=== PATIENT | male | born 1970 | race Caucasian/White ===

== ENCOUNTER 2017-04-01 14:33 | Inpatient (IN) | payer MEDICAID ==
[~2017-04-01] VITALS: Ht 175.3 cm; Wt 95.3 kg
--- NOTE | 2017-04-01 07:15 | NUR ---
MS RN OPENING NOTES: PT IS CURRENTLY GETTING AN MRI. PT IS NOT IN BED. 2 FAMILY MEMBERS ARE AT BEDSIDE WAITING FOR HIM TO COME BACK. WILL CHECK BACK IN WHEN HE ARRIVES.
--- NOTE | 2017-04-01 14:33 | NUR ---
BIB RA FROM HOME FOR ABDOMINAL PAIN X 3-4 DAYS, REFERRED BY PCP. NAD NOTED. PT AAO X4, AMB WITH STEADY GAIT. RR EVEN AND UNLABORED. PAIN 10/10. PT PLACED IN GOWN AND MONITOR. CONTINUE TO MONITOR.
[2017-04-01] MEDS ORDERED: MORPHINE SULFATE INJ 4 MG/ML DISP.SYRIN ONE (14:40)
[2017-04-01] MEDS ORDERED: IV NS 0.9% 1,000 ML ONE (14:40)
[2017-04-01] MEDS ORDERED: ONDANSETRON HCL/PF 4 MG/2 ML VIAL ONE (14:40)
[2017-04-01] MEDS ORDERED: IV SET PRIMARY PUMP SET 1 EA INFUS.SET MC ONE ×2 (14:40→17:57)
[2017-04-01 14:52] LABS: BASOPHILS # (AUTO) 0.3 /CMM (0.0-0.2); BASOPHILS % (AUTO) 2.4 % (0.0-2.0); EOSINOPHILS % (AUTO) 0.3 % (0.0-6.0); HEMATOCRIT 46 % (39-51); HEMOGLOBIN 15.4 g/dL (13.5-17.5); LYMPHOCYTES # (AUTO) 0.9 /CMM (0.8-4.8); LYMPHOCYTES % (AUTO) 7.5 % (20.0-44.0); MEAN CORPUSCULAR HEMOGLOBIN 29 PG (26.0-33.0); MEAN CORPUSCULAR HGB CONC 34 g/dl (31.0-36.0); MEAN CORPUSCULAR VOLUME 85 fL (80-96); MONOCYTES # (AUTO) 1.1 /CMM (0.1-1.30); MONOCYTES % (AUTO) 9.1 % (2.0-12.0); NEUTROPHILS # (AUTO) 9.9 /CMM (1.8-8.9); NEUTROPHILS % (AUTO) 80.7 % (43.0-81.0); PLATELET COUNT (AUTO) 187 /CMM (150-450); RDW COEFFICIENT OF VARIATION 12.4 (11.5-15.0); RED BLOOD CELL COUNT(AUTO) 5.38 MIL/uL (4.5-6.0); WHITE BLOOD COUNT (AUTO) 12.2 K/uL (4.3-11.0)
--- NOTE | 2017-04-01 14:52 | NUR ---
MEDICATIONS GIVEN ORDERED.
[2017-04-01 15:00] LABS: CALCIUM, SERUM 9.6 mg/dL (8.5-10.1); CREATININE 0.9 mg/dL (0.6-1.3); POTASSIUM 4.2 mmol/L (3.5-5.1)
[2017-04-01] MEDS ORDERED: MORPHINE SULFATE INJ 2 MG/ML DISP.SYRIN IV ONE (15:00)
[2017-04-01] MEDS ORDERED: IV NS 0.9% 1,000 ML BAG IV ONE (15:00)
[2017-04-01] MEDS ORDERED: ONDANSETRON HCL/PF 4 MG/2 ML VIAL IVP ONE (15:00)
[2017-04-01 15:06] LABS: ALBUMIN 4.1 g/dL (3.4-5.0); BILIRUBIN,DIRECT 0.2 mg/dL (0.0-0.2); BILIRUBIN,TOTAL 0.9 mg/dL (0.2-1.0); TOTAL PROTEIN, SERUM 7.8 g/dL (6.4-8.2)
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
--- NOTE | 2017-04-01 16:27 | NUR ---
REPORT GIVEN TO SOPHIE Jarrell RN FOR ASHWINI
[2017-04-01] MEDS ORDERED: PIPERACILLIN /TAZOBACTAM 3.375 G in IV D5W 50 ML IV ONE (16:30)
[2017-04-01] MEDS ORDERED: HYDROCODONE/APAP 5/325MG 1 EACH TABLET PO PRN (16:30)
[2017-04-01] MEDS ORDERED: Z GUARD REMEDY 2 OZ OINT TP PRN (16:30)
[2017-04-01] MEDS ORDERED: ONDANSETRON HCL/PF 4 MG/2 ML VIAL IVP PRN (16:30)
[2017-04-01] MEDS ORDERED: ZOLPIDEM TARTRATE 5 MG TABLET PO PRN (16:30)
--- NOTE | 2017-04-01 16:48 | NUR ---
TEXTED [facility].
--- NOTE | 2017-04-01 17:00 | NUR ---
MALE PT. BROUGHT UP FROM ER AND MADE COMFORTABLE,VS TAKEN,SLEEPY AND NO ACUTE DISCOMFORT AT THIS TIME.FAMILY AT BEDSIDE.
--- NOTE | 2017-04-01 17:02 | NUR ---
[facility]
[2017-04-01 17:08] LABS: INR 0.98 (0.87-1.13); PROTHROMBIN TIME 10.5 SECS (9.5-12.7)
--- NOTE | 2017-04-01 17:40 | NUR ---
STARTED LOVENOX AND IV HUNG.
[2017-04-01] MEDS: IV NS 0.9% 1,000 ML IV PRN (18:05)
[2017-04-01] MEDS: ENOXAPARIN SODIUM 40 MG/0.4 ML DISP.SYRIN SQ SCH (18:07)
[2017-04-01 18:47] VITALS: BP 137/92
--- NOTE | 2017-04-01 19:20 | NUR ---
GAS DESULFURIZER OPENING NOTES: RECEIVED PT IN BED AWAKE WITH GIRLFRIEND AT BEDSIDE. PT IS A/O X3. PT HAS URINAL AT BEDSIDE. PT WAS INFORMED THAT HE WILL BE NPO PAST MIDNIGHT. PT HAS IV ON R AC 20G AND IS PATENT AND INTACT. PT VOICED THAT HIS PAIN LEVEL IS AT A 7/10 CHEST PAIN. CALL LIGHT WITHIN PT'S REACH. BED KEPT IN LOCKED, LOWEST POSITION, AND SIDE RAILS X 2 UP. WILL CONTINUE TO MONITOR PT. Addendum: 04/01/17 at 2001 by ELAN ALEXANDER RN WRONG CHARTING FOR PATIENT. DISREGARD THIS PLEASE. THANK YOU. Addendum: 04/01/17 at 2330 by ELAN ALEXANDER RN DISREGARD THIS NOTE; WRONG CHARTING FOR WRONG PATIENT.
[2017-04-01 20:00] VITALS: BP 157/105
[2017-04-01] MEDS: HYDROMORPHONE 1 MG/1 ML DISP.SYRIN IV PRN (20:30)
--- NOTE | 2017-04-01 20:30 | NUR ---
MS RN NOTES: PT COMPLAINED OF 8/10 RIGHT UPPER QUADRANT ABDOMINAL PAIN. PT RECEIVED DILAUDID 0.5MG IV. PT'S BP WAS 157/105 HR 116, RR 18, AND PULSE OX 92%. WILL CONTINUE TO MONITOR PT.
--- NOTE | 2017-04-01 22:05 | NUR ---
MS GUILLERMO OPENING NOTES: RECEIVED PT BACK FROM GETTING AN MRI DOWNSTAIRS. FAMILY MEMBERS AT BEDSIDE. PT WAS INFORMED THAT HE IS TO REMAIN NPO. PT INITIALLY HAS A 101.2 TEMPERATURE. ICE WAS GIVEN TO PUT UNDER HIS ARMS AND ALSO COLD CLOTH; AC WAS TURNED ON TO COOL FOR THE ROOM. PT HAS IV ON L AC #20G AND IS PATENT AND INTACT. FLUIDS ARE INFUSING AT IV 0.9 NS AT 75ML/HR. CALL LIGHT WITHIN PT'S REACH. BED KEPT IN LOCKED, LOWEST POSITION, AND SIDE RAILS X 2 UP. WILL CONTINUE TO MONITOR PT. Addendum: 04/02/17 at 0426 by ELAN ALEXANDER RN TIME INPUT WAS WRONG; WAS MEANT FOR 04/01/17 20:07 PM
[2017-04-01 22:07] VITALS: BP 157/105
[2017-04-01 23:00] VITALS: BP 145/90
--- NOTE | 2017-04-01 23:00 | NUR ---
MS RN NOTES: FEVER WENT DOWN TO 99.8 POST ICE PACKS UNDERNEATH HIS ARMS AND COOL CLOTH ON FOREHEAD.
[2017-04-01] MEDS ORDERED: SECONDARY IV SET 1 EA INFUS.SET MC ONE (23:05)
[2017-04-01] MEDS: PIPERACILLIN /TAZOBACTAM 4.5 G in IV D5W 50 ML IV SCH (23:13)
--- NOTE | 2017-04-02 | NUR ---
MS RN NOTES: PT COMPLAINED OF NAUSEA. PT RECEIVED ZOFRAN 4MG. WILL CONTINUE TO MONITOR PT.
[2017-04-02] MEDS: HYDROMORPHONE 1 MG/1 ML DISP.SYRIN IV PRN ×2 (00:33→04:34)
--- NOTE | 2017-04-02 00:33 | NUR ---
MS RN NOTES: PT COMPLAINED OF 10/10 RUQ ABDOMEN PAIN. PT REQUESTED FOR DILAUDID 0.5MG IV. BP WAS 144/86 HR 121, PULSE OX 91%; WILL CONTINUE TO MONITOR PT.
--- NOTE | 2017-04-02 04:34 | NUR ---
MS RN NOTES: PT COMPLAINED OF 10/10 RUQ AB PAIN. PT REQUESTED FOR DILAUDID 0.5MG IV; PT'S BP WAS 144/84 HR 118, PULSE OX 91% . WILL CONTINUE TO MONITOR PT.
[2017-04-02] MEDS: PIPERACILLIN /TAZOBACTAM 4.5 G in IV D5W 50 ML IV SCH ×3 (05:35→18:04)
--- NOTE | 2017-04-02 05:50 | NUR ---
MS RN NOTES: ZOSYN MIX MEDICATION IN MED ROOM WAS MIXED BUT WAS NOT ABLE TO BE DRAWN IN. CHARGE NURSE AWARE. LEFT A NOTE AND IT IS IN THE FRIDGE. WILL ENDORSE TO AM NURSE.
--- NOTE | 2017-04-02 07:25 | NUR ---
MS RN CLOSING NOTES: PT IS IN BED LAYING DOWN. PT IS A/O X3. FAMILY MEMBER JUST GOT UP AND IS AT BEDSIDE. ALL NEEDS WERE ATTENDED AND ANTICIPATED FOR. PT HAD 400ML OUTPUT IN HIS URINAL. PT HAS L AC #20G AND IS PATENT AND INTACT. FLUIDS ARE BEING INFUSED AT NS 1,000ML AT 75ML/HR. CALL LIGHT WITHIN PT'S REACH. BED KEPT IN LOCKED, LOWEST POSITION, AND SIDE RAILS X 2 UP. ENDORSED TO AM NURSE FOR ASHWINI.
--- NOTE | 2017-04-02 07:46 | NUR ---
MS RN OPENING RECEIVED PATIENT A/OX4 STATES PAIN 8/10 AND PRN DILAUDID ONLY WORKS FOR 2-3 HOURS. PATIENT AT BEDSIDE. PATIENT REQUESTING INCREASE IN PAIN MEDICATIONS. IVF RUNNING ORDERED. CALL LIGHT IN REACH, BED LOWERED AND LOCKED, RAILS UPX 2 FOR SAFETY. PATIENT HAS SLIGHTLY ELEVATED TEMP 99.3 WILL APPLY ICE FOR PATIENT.
[2017-04-02 07:48] LABS: BASOPHILS % (AUTO) 0.2 % (0.0-2.0); EOSINOPHILS % (AUTO) 0.4 % (0.0-6.0); HEMATOCRIT 40 % (39-51); HEMOGLOBIN 13.8 g/dL (13.5-17.5); LYMPHOCYTES # (AUTO) 0.9 /CMM (0.8-4.8); LYMPHOCYTES % (AUTO) 8.3 % (20.0-44.0); MEAN CORPUSCULAR HEMOGLOBIN 29 PG (26.0-33.0); MEAN CORPUSCULAR HGB CONC 35 g/dl (31.0-36.0); MEAN CORPUSCULAR VOLUME 84 fL (80-96); MONOCYTES # (AUTO) 1.1 /CMM (0.1-1.30); MONOCYTES % (AUTO) 9.9 % (2.0-12.0); NEUTROPHILS # (AUTO) 8.9 /CMM (1.8-8.9); NEUTROPHILS % (AUTO) 81.2 % (43.0-81.0); PLATELET COUNT (AUTO) 182 /CMM (150-450); RDW COEFFICIENT OF VARIATION 13.2 (11.5-15.0); RED BLOOD CELL COUNT(AUTO) 4.72 MIL/uL (4.5-6.0)
[2017-04-02 08:00] VITALS: BP 147/90
[2017-04-02 08:08] LABS: CALCIUM, SERUM 8.4 mg/dL (8.5-10.1); CREATININE 0.9 mg/dL (0.6-1.3); MAGNESIUM 1.6 mg/dL (1.8-2.4); PHOSPHORUS 3.1 mg/dL (2.5-4.9); POTASSIUM 3.8 mmol/L (3.5-5.1)
--- NOTE | 2017-04-02 08:30 | NUR ---
MS RN NOTES PATIENT RESTING WELL. COMFORTABLY. WILL GIVE PAIN MEDICATIONS ONCE PATIENT IS AWAKE AND ASKING FOR MORE.
[2017-04-02] MEDS ORDERED: SECONDARY IV SET 1 EA INFUS.SET MC ONE (10:44)
[2017-04-02] MEDS: PANTOPRAZOLE 40 MG VIAL IV SCH (10:46)
[2017-04-02] MEDS: Magnesium 1GM/D5W 100ML PREMIX 100 ML IV SCH ×2 (10:48→11:59)
[2017-04-02] MEDS: IV NS 0.9% 1,000 ML IV PRN (10:55)
[2017-04-02 16:00] VITALS: BP 143/86
--- NOTE | 2017-04-02 16:30 | NUR ---
MS RN NOTES PRN TYLENOL OK PER MD HUBER TO GIVE. PATIENT NOT WANTING TO PUT ICE ON. WILL RECHECK
[2017-04-02] MEDS: ACETAMINOPHEN 325 MG TABLET PO PRN (16:36)
--- NOTE | 2017-04-02 17:30 | NUR ---
MS RN NOTES PATIENT TEMP HIGHER, EDUCATED ON ICE AND COOLING ROOM AND IS NOW COMPLIANT AND PATIENT REMOVED SWEAT PANTS AT LAST.
--- NOTE | 2017-04-02 18:15 | NUR ---
MS RN CLOSING PATIENT STABLE. PAIN CONTROLLED WITH NON PHARM MEASURES. PATIENT HAS REFUSED ANY PAIN MEDICATIONS THROUGHOUT DAY WELL AT THIS TIME. ALL DUE MEDS GIVEN AND ALL NEEDS MET. PATIENT TOLERATED ICE APPLICATION FOR 30 MIN. EATING DINNER AT THIS TIME. WILL CHECK TEMP AGAIN BEFORE TRANSFER OF CARE. PATIENT STATES NO NEEDS. IVF RUNNING ORDERED AND WILL ENDORSE CARE TO MIMA WEN FOR ASHWINI. FAMILY AT BEDSIDE
--- NOTE | 2017-04-02 19:15 | NUR ---
RN NOTES RECEIVED PT AWAKE, NO SOB, NOT IN DISTRESS, ON ROOM AIR WITH GOOD SATURATION. PT ALERT AND ORIENTED X4, DENIES ANY PAIN AND DISCOMFORT AT TIME, AFEBRILE TEMP 98.7. IV ACCESS ON LEFT AC PATENT AND INTACT WITH ONGOING IVF INFUSING WELL. KEPT COMFORTABLE AND ATTENDED. FAMILY AT BEDSIDE. WILL CONTINUE TO MONITOR PT.
[2017-04-02 20:00] VITALS: BP 138/90
[2017-04-02] MEDS: ENOXAPARIN SODIUM 40 MG/0.4 ML DISP.SYRIN SQ SCH (21:14)
[2017-04-02 22:00] VITALS: BP 138/90
[2017-04-03] MEDS: PIPERACILLIN /TAZOBACTAM 4.5 G in IV D5W 50 ML IV SCH ×2 (00:23→06:10)
[2017-04-03] MEDS: IV NS 0.9% 1,000 ML IV PRN ×2 (04:52→20:50)
[2017-04-03] MEDS: ACETAMINOPHEN 325 MG TABLET PO PRN ×2 (05:18→11:12)
--- NOTE | 2017-04-03 05:18 | NUR ---
RN NOTES PT COMPLAINS OF HEADACHE, TYLENOL 650 MG TAB GIVEN PO. WILL CONTINUE TO MONITOR PT.
[2017-04-03 06:49] LABS: CREATININE 0.9 mg/dL (0.6-1.3); MAGNESIUM 2.1 mg/dL (1.8-2.4); POTASSIUM 3.9 mmol/L (3.5-5.1)
--- NOTE | 2017-04-03 06:50 | NUR ---
RN NOTES PT ASLEEP, NO SOB, NOT IN DISTRESS, ON ROOM AIR AND TOLERATED WELL. VITAL SIGNS STABLE, AFEBRILE. NO EPISODE OF NAUSEA AND VOMITING, ABDOMINAL PAIN AT TOLERABLE LEVEL ON MOVEMENT. ON CLEAR LIQUID DIET AND TOLERATED WELL. ALL NEEDS ATTENDED. NO SIGNIFICANT CHANGE IN CONDITION NOTED. WILL ENDORSE TO MORNING RN FOR CONTINUITY OF CARE.
[2017-04-03 08:00] VITALS: BP 131/97
--- NOTE | 2017-04-03 08:00 | NUR ---
MS/RN OPENING NOTE RECEIVED PT. IN BED AWAKE, A&OX4. NO SOB, NO S/S OF DISTRESS. REMAINS ON CLEAR LIQUID DIET. PT. HAS ABDOMINAL DISCOMFORT BUT REFUSED PAIN MEDICATION WHEN OFFERED. PT. REMAINS ON IV FLUIDS, AND INFUSING WELL. INSTRUCTED TO CALL FOR ASSISTANCE.
--- NOTE | 2017-04-03 09:00 | NUR ---
MS/RN NOTES PT. TOLERATED CLEAR LIQUID DIET, DENIES NAUSEA, AND VOMITING, AND ABDOMINAL DISCOMFORT. FAMILY AT BEDSIDE.
[2017-04-03] MEDS: PANTOPRAZOLE 40 MG VIAL IV SCH (09:38)
[2017-04-03] MEDS: PIPERACILLIN /TAZOBACTAM 3.375 G in IV D5W 50 ML IV SCH ×2 (12:25→17:28)
--- NOTE | 2017-04-03 13:00 | NUR ---
MS/RN MD VISIT PT. WAS SEEN AND EXAMINED BY DR. HUBER WITH ORDER TO ADVANCE DIET TO SOFT. ORDER CARRIED OUT AND NOTED.
--- NOTE | 2017-04-03 14:00 | NUR ---
MS/RN NOTES PT. TOLERATED SOFT DIET, NO C/O NAUSEA AND VOMITING. INSTRUCTED TO CALL FOR ASSISTANCE.
[2017-04-03 16:00] VITALS: BP 137/88
--- NOTE | 2017-04-03 16:00 | NUR ---
MS/RN NOTES PT. IS SOUND ASLEEP. CALL LIGHT WITHIN REACH.
--- NOTE | 2017-04-03 16:50 | NUR ---
MS/RN NOTES RECEIVED LAB ORDERS FROM DR. HUBER, ORDERS ACKNOWLEDGED.
--- NOTE | 2017-04-03 18:54 | NUR ---
MS/RN CLOSING NOTE PT. IS RESTING COMFORTABLE IN BED. NO CHANGE IN CONDITION. NEEDS ATTENDED. INSTRUCTED TO CALL FOR ASSISTANCE. PT. TOLERATED SOFT DIET WITH NO C/O N/V OR ABDOMINAL DISCOMFORT. NO ACUTE DISTRESS. WILL ENDORSE TO NEXT SHIFT ACCORDINGLY.
--- NOTE | 2017-04-03 19:00 | NUR ---
RN NOTE RECEIVED REPORT. PT AAOX4, NO C/O PAIN OR ANY DISTRESS AT THIS TIME. BREATHING NON-LABORED AND EVEN. IV INTACT AND PATENT. CALL LIGHT IN REACH, WILL CONT TO MONITOR.
[2017-04-03 20:43] VITALS: BP 145/77
[2017-04-03] MEDS: ENOXAPARIN SODIUM 40 MG/0.4 ML DISP.SYRIN SQ SCH (20:51)
[2017-04-04] MEDS: PIPERACILLIN /TAZOBACTAM 3.375 G in IV D5W 50 ML IV SCH ×5 (00:47→18:00)
--- NOTE | 2017-04-04 02:00 | NUR ---
RN NOTE PT RESTING COMFORTABLY IN BED. NO S/S OF ANY DISTRESS AT THIS TIME. WILL CONT TO MONITOR.
[2017-04-04 06:29] LABS: BASOPHILS % (AUTO) 0.7 % (0.0-2.0); EOSINOPHILS # (AUTO) 0.1 /CMM (0.0-0.7); EOSINOPHILS % (AUTO) 1.9 % (0.0-6.0); HEMATOCRIT 37 % (39-51); HEMOGLOBIN 12.8 g/dL (13.5-17.5); LYMPHOCYTES # (AUTO) 1.6 /CMM (0.8-4.8); MEAN CORPUSCULAR HEMOGLOBIN 29 PG (26.0-33.0); MEAN CORPUSCULAR HGB CONC 35 g/dl (31.0-36.0); MEAN CORPUSCULAR VOLUME 85 fL (80-96); MONOCYTES # (AUTO) 0.5 /CMM (0.1-1.30); MONOCYTES % (AUTO) 8.7 % (2.0-12.0); NEUTROPHILS # (AUTO) 3.4 /CMM (1.8-8.9); NEUTROPHILS % (AUTO) 60.7 % (43.0-81.0); PLATELET COUNT (AUTO) 194 /CMM (150-450); RDW COEFFICIENT OF VARIATION 13.3 (11.5-15.0); RED BLOOD CELL COUNT(AUTO) 4.34 MIL/uL (4.5-6.0); WHITE BLOOD COUNT (AUTO) 5.6 K/uL (4.3-11.0)
--- NOTE | 2017-04-04 06:37 | NUR ---
RN NOTE NO SIGNIFICANT CHANGES OVERNIGHT - PT SLEPT WELL. NO C/O OR S/S OF ANY DISTRESS AT THIS TIME. IV INTACT AND PATENT, ABX INFUSING. BREATHING NON LABORED AND EVEN. CALL LIGHT IN REACH, WILL F/U WITH DAY SHIFT FOR ASHWINI.
[2017-04-04 06:57] LABS: CALCIUM, SERUM 8.7 mg/dL (8.5-10.1); CREATININE 0.9 mg/dL (0.6-1.3); PHOSPHORUS 2.5 mg/dL (2.5-4.9); POTASSIUM 3.6 mmol/L (3.5-5.1)
[2017-04-04 08:00] VITALS: BP 117/80
[2017-04-04 08:47] LABS: ALBUMIN 2.7 g/dL (3.4-5.0); BILIRUBIN,DIRECT 0.1 mg/dL (0.0-0.2); BILIRUBIN,TOTAL 0.3 mg/dL (0.2-1.0); TOTAL PROTEIN, SERUM 6.6 g/dL (6.4-8.2)
[2017-04-04] MEDS: PANTOPRAZOLE 40 MG VIAL IV SCH (08:54)
--- NOTE | 2017-04-04 11:56 | NUR ---
MIMA MS NOTES RECEIVED PATIENT IN BED, NO APPARENT DISTRESS NOTED, NO SOB, DENIES PAIN. IV LINE PATENT, ALL NEEDS MET, CALL LIGHT WITHIN REACH. Addendum: 04/04/17 at 1841 by MICHAEL TRIPP RN OPENING NOTES FOR [id number]
--- NOTE | 2017-04-04 12:00 | NUR ---
RN MS NOTES PATIENT SEEN AND EVALUATED BY DR HUBER, ORDERS NOTED AND CARRIED OUT.
[2017-04-04 16:00] VITALS: BP 123/79
[2017-04-04] MEDS: IV NS 0.9% 1,000 ML IV PRN (17:08)
--- NOTE | 2017-04-04 18:42 | NUR ---
RN MS NOTES PATIENT IN BED RESTING, A/OX 4. DUE MEDS GIVEN, ALL NEEDS MET, IV LINE IN RIGHT FOREARM PATENT. WILL ENDORSE CARE TO PM SHIFT.
--- NOTE | 2017-04-04 19:05 | NUR ---
RN NOTE RECEIVED REPORT. PT AAOX4, NO S/S OR C/O PAIN OR DISCOMFORT AT THIS TIME. NO DISTRESS NOTED. IV INTACT AND PATENT, TOLERATING FLUIDS WELL. CALL LIGHT IN REACH. WILL CONT TO MONITOR.
[2017-04-04 20:00] VITALS: BP 138/85
[2017-04-04] MEDS: ENOXAPARIN SODIUM 40 MG/0.4 ML DISP.SYRIN SQ SCH (20:41)
[2017-04-05] MEDS: PIPERACILLIN /TAZOBACTAM 3.375 G in IV D5W 50 ML IV SCH ×3 (00:16→13:01)
--- NOTE | 2017-04-05 01:43 | NUR ---
RN NOTE PT RESTING COMFORTABLY IN BED. NO S/S OF ANY DISTRESS.WILL CONT TO MONITOR.
[2017-04-05] MEDS: IV NS 0.9% 1,000 ML IV PRN (06:17)
--- NOTE | 2017-04-05 06:45 | NUR ---
RN NOTE NO SIGNIFICANT CHANGES OVERNIGHT. PT RESTING IN BED WITH EYES CLOSED. NO S/S OF ANY DISTRESS AT THIS TIME. IV INTACT AND PATENT, TOLERATING FLUIDS WELL. CALL LIGHT IN REACH. WILL F/U WITH DAY SHIFT FOR ASHWINI.
[2017-04-05 08:00] VITALS: BP 140/84
--- NOTE | 2017-04-05 08:00 | NUR ---
MS RN NOTES PATIENT IN BED RESTING NO SOB OR ACUTE DISTRESS NOTED. BED IN LOW LOCKED POSITION. CALL LIGHT WITHIN REACH. IV INTACT PATENT ON RIGHT FOREARM. WILL CONTINUE TO MONITOR.
[2017-04-05] MEDS: PANTOPRAZOLE 40 MG VIAL IV SCH (08:22)
[2017-04-05 11:21] LABS: BASOPHILS % (AUTO) 0.6 % (0.0-2.0); EOSINOPHILS # (AUTO) 0.1 /CMM (0.0-0.7); HEMATOCRIT 40 % (39-51); HEMOGLOBIN 13.8 g/dL (13.5-17.5); LYMPHOCYTES # (AUTO) 1.5 /CMM (0.8-4.8); MEAN CORPUSCULAR HEMOGLOBIN 29 PG (26.0-33.0); MEAN CORPUSCULAR HGB CONC 34 g/dl (31.0-36.0); MEAN CORPUSCULAR VOLUME 84 fL (80-96); MONOCYTES # (AUTO) 0.5 /CMM (0.1-1.30); MONOCYTES % (AUTO) 8.8 % (2.0-12.0); NEUTROPHILS # (AUTO) 3.3 /CMM (1.8-8.9); NEUTROPHILS % (AUTO) 60.6 % (43.0-81.0); PLATELET COUNT (AUTO) 249 /CMM (150-450); RDW COEFFICIENT OF VARIATION 12.7 (11.5-15.0); RED BLOOD CELL COUNT(AUTO) 4.78 MIL/uL (4.5-6.0); WHITE BLOOD COUNT (AUTO) 5.4 K/uL (4.3-11.0)
[2017-04-05 11:37] LABS: CALCIUM, SERUM 9.3 mg/dL (8.5-10.1); CREATININE 0.9 mg/dL (0.6-1.3); MAGNESIUM 1.9 mg/dL (1.8-2.4); POTASSIUM 3.9 mmol/L (3.5-5.1)
--- NOTE | 2017-04-05 12:00 | NUR ---
MS RN NOTES PATIENT SEEN AND ASSESSED BY DR. HUBER ORDERS NOTED AND CARRIED OUT.
--- NOTE | 2017-04-05 14:20 | NUR ---
MS RN NOTES PATIENT DISCHARGED HOME IN STABLE CONDITION. NO SOB OR ACUTE DISTRESS NOTED. PATIENT DENIES ANY PAIN, NAUSEA. DISCHARGE EDUCATION PROVIDED. VERBALIZED UNDERSTANDING. PRESCRIPTION PROVIDED TO PATIENT AND . MD AWARE OF ALL ABNORMAL LABS. ALL BELONGINGS ACCOUNTED FOR. BELONGING LIST SIGNED. PERIPHERAL IV REMOVED WITH MINIMAL BLEEDING. DISCHARGE PROTOCOL FOLLOWED. ESCORTED TO CARE WITH FAMILY.
== END 2017-04-05 14:30 | disposition home or self-care (01) ==
LOC: ER 14:35 → MED 16:46
PROVIDERS: ADMIT Internal Medicine; ATTEND Internal Medicine
DX: K80.00 Calculus of gallbladder with acute cholecystitis without obstruction (principal); K76.0 Fatty (change of) liver, not elsewhere classified; E83.42 Hypomagnesemia; E78.5 Hyperlipidemia, unspecified; E66.9 Obesity, unspecified; Z68.31 Body mass index [BMI] 31.0-31.9, adult; R73.9 Hyperglycemia, unspecified; R74.0 Nonspecific elevation of levels of transaminase and lactic acid dehydrogenase [LDH]; D72.829 Elevated white blood cell count, unspecified
CPT/HCPCS: 36415; 71010-TC; 74181-TC; 76705-TC; 80048-TC; 80061-TC; 80076-TC; 83605-TC; 83690-TC; 83735-TC; 84100-TC; 85025-TC; 85730-TC; 86850-TC; 87040-TC; 87081-TC; C9113; J1170; J1650; J2270; J2405; J2543; J3475; J7030; J7060

== ENCOUNTER → 2018-07-28 | Emergency (ER) | payer MEDICAID ==
[~2018-07-28] VITALS: Ht 177.8 cm; Wt 86.2 kg
[~2018-07-28] MED LIST: CYCLOBENZAPRINE 10 MG TABLET ONE; CYCLOBENZAPRINE 10 MG TABLET PO ONE; HYDROCODONE/APAP 5/325MG 1 EACH TABLET ONE; HYDROCODONE/APAP 5/325MG 1 EACH TABLET PO ONE; KETOROLAC TROMETHAMINE INJ 30 MG/ML VIAL ONE; KETOROLAC TROMETHAMINE INJ 60 MG/2 ML VIAL IM ONE
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
--- NOTE | 2018-07-28 17:00 | NUR ---
JERRI BEAVERS AT BEDSIDE FOR EVAL.
--- NOTE | 2018-07-28 18:18 | NUR ---
Patient discharged to home in stable condition. Written and verbal after care instructions given. Patient verbalizes understanding of instruction.
[2018-07-28 18:20] VITALS: BP 135/84
== END | disposition home or self-care (01) ==
LOC: ER 16:06
DX: S39.012A Strain of muscle, fascia and tendon of lower back, initial encounter (principal); S46.812A Strain of other muscles, fascia and tendons at shoulder and upper arm level, left arm, initial encounter; M62.830 Muscle spasm of back; F17.200 Nicotine dependence, unspecified, uncomplicated; Z98.890 Other specified postprocedural states; V49.49XA Driver injured in collision with other motor vehicles in traffic accident, initial encounter; Y93.89 Activity, other specified; Y92.488 Other paved roadways as the place of occurrence of the external cause; Y99.8 Other external cause status
CPT/HCPCS: 71045-TC; A4606; J1885; Z7610